=== PATIENT | female | born 1950 | race Caucasian/White ===

== ENCOUNTER → 2017-01-26 | Outpatient (CLI) | payer OTHER | LOC: CIMAGING 08:55 | DX: Z12.31 Encounter for screening mammogram for malignant neoplasm of breast (principal); Z80.3 Family history of malignant neoplasm of breast | CPT/HCPCS: G0202 ==

== ENCOUNTER → 2018-01-28 | Outpatient (CLI) | payer OTHER | LOC: CIMAGING 08:45 | PROVIDERS: ATTEND Family Medicine | DX: Z12.31 Encounter for screening mammogram for malignant neoplasm of breast (principal) ==

== ENCOUNTER → 2019-01-29 | Outpatient (CLI) | payer OTHER | LOC: EMCIMAGING 08:53 | PROVIDERS: ATTEND Family Medicine | DX: Z12.31 Encounter for screening mammogram for malignant neoplasm of breast (principal) | CPT/HCPCS: 77067-PN ==